=== PATIENT | male | born 1970 | race Caucasian/White ===

== ENCOUNTER 2019-01-27 19:37 | Inpatient (IN) | payer MEDICAID ==
[~2019-01-27] VITALS: Ht 170.2 cm; Wt 125.6 kg
[2019-01-27 19:40] VITALS: BP 116/75
--- NOTE | 2019-01-27 19:44 | NUR ---
PT AMBULATED TO ER BED 8
[2019-01-27] MEDS ORDERED: MORPHINE SULFATE 4 MG/ML SYR IVP ONE (19:50)
[2019-01-27] MEDS ORDERED: ONDANSETRON 4 MG/2 ML VIAL IVP ONE (19:50)
--- NOTE | 2019-01-27 19:50 | NUR ---
48/M BIB FAMILY, C/O DISTENDED ABD, SOB, GENERALIZED WEAKNESS, X3 MONTHS AND WORSENING X2 WEEKS. PT AOX4, PERRLA 3MM WITH JAUNDICE, SKIN NORMAL WARM DRY, RR EVEN AND MILDLY LABORED. LUNG SOUNDS CLEAR BL. HR EVEN, REGULAR AND TACHYCARDIC. BS HYPOACTIVE X4, ABD LARGE DISTENDED FIRM AND POSSIBLY ASCITIC, MILDLY TENDER TO TOUCH. HX HTN; DENIES KNOWLEDGE OF CARDIAC OR LIVER D/O RX SORAFENIB
[2019-01-27] MEDS: NACL 0.9% 1,000 ML IV SCH ×2 (20:03→20:04)
[2019-01-27 20:07] LABS: HEMOGLOBIN 14.6 g/dL (12.0-18.0); MEAN CORPUSCULAR HEMOGLOBIN 22 pg (27-31); MEAN CORPUSCULAR HGB CONC 32 g/dL (33-37); MEAN CORPUSCULAR VOLUME 69.1 fL (80-94); RED BLOOD CELL COUNT(AUTO) 6.66 MIL/uL (4.20-6.10); RED CELL DISTRIBUTION WIDTH 20.4 % (11.6-13.7); WHITE BLOOD COUNT (AUTO) 18.3 K/uL (4.8-10.8)
--- NOTE | 2019-01-27 20:07 | NUR ---
DR. DAVIS BEDSIDE EVALUATING PT
[2019-01-27 20:22] LABS: ALBUMIN 2.5 g/dL (3.4-5.0); ANION GAP 21.2 (8-16); CARBON DIOXIDE 23.5 mmol/L (21-32); CREATININE 2.2 mg/dL (0.7-1.3); TOTAL BILIRUBIN 5.4 mg/dL (0.0-1.0)
[2019-01-27] MEDS ORDERED: SODIUM POLYSTYRENE 15 GM/60 ML UDBTL PO ONE (20:25)
[2019-01-27 20:26] LABS: CORRECTED WHITE BLOOD COUNT 17.1 K/uL (4.5-11.0); PLATELET COUNT (AUTO) 636 K/uL (140-450)
[2019-01-27 20:27] LABS: EOSINOPHILS % (MANUAL) 1 % (0-4); LYMPHOCYTES % (MANUAL) 9 % (20-46); MONOCYTES % (MANUAL) 2 % (5-12); POTASSIUM 6.7 mmol/L (3.5-5.1)
--- NOTE | 2019-01-27 20:27 | NUR ---
PT RETURNED FROM RAD
--- NOTE | 2019-01-27 21:10 | NUR ---
PT LAYING IN BED, SPO2 95% ON 2L NC, RR 21 EVEN AND MILDLY LABORED. PT REPORTS IMPROVEMENT IN ABD PAIN AFTER MEDS, 04/08. DENIES NAUSEA. BLOOD GLUCOSE 88. DR DAVIS MADE AWARE
[2019-01-27] MEDS ORDERED: NACL 0.9% 1,000 ML IV SCH (21:16)
[2019-01-27] MEDS ORDERED: ZOLPIDEM 5 MG TAB PO PRN (21:20)
[2019-01-27] MEDS ORDERED: ACETAMINOPHEN 325 MG TAB PO PRN (21:20)
[2019-01-27] MEDS ORDERED: DOCUSATE SODIUM 100 MG GELCAP PO PRN (21:20)
[2019-01-27] MEDS ORDERED: MORPHINE SULFATE 2 MG/ML SYR IVP PRN (21:20)
[2019-01-27] MEDS ORDERED: ONDANSETRON 4 MG/2 ML VIAL IM/IVP PRN (21:20)
[2019-01-27] MEDS ORDERED: HYDROcodone/APAP 5/325 MG 1 TAB TAB PO PRN (21:20)
--- NOTE | 2019-01-27 21:40 | NUR ---
DR BRADLEY AT BEDSIDE
--- NOTE | 2019-01-27 21:50 | NUR ---
Patient will be admitted to care of DR. MOFFETT. Admited to [facility]. Will go to room 107B. Belongings list completed. Report to [facility].
[2019-01-27 21:53] VITALS: BP 123/79
--- NOTE | 2019-01-27 21:53 | NUR ---
RECEIVED BEDSIDE REPORT FROM ER NURSE. PATIENT IS AWAKE, ALERT, AND COOPERATIVE. RESPIRATION EVEN UNLABORED ON 2L NC. NO DISTRESS NOTED. SKIN IS WARM AND DRY. IV PATENT AND INTACT. CHIEF COMPLAINED ABDOMINAL PAIN, SOB, AND GEN WEAKNESS. DIAGNOSIS LIVER FAILURE; ASCITES. LUNGS SOUNDS CLEAR ON AUSCULTATIONS. BOWEL SOUNDS PRESENT IN ALL QUADRANTS. ABDOMEN ROUND AND TENDER DENIES PAIN. VITALS WERE TAKEN. MRSA SCREEN DONE. ALL SAFETY MEASURES IN PLACE. FAMILY AT BEDSIDE. ORIENT PATIENT TO ROOM, STAFF, AND CALL LIGHT. BED IS AT LOW POSITION. CALL LIGHT WITHIN REACH AND VERBALIZES ITS USE. WILL CONTINUE TO MONITOR.
[2019-01-27 21:55] LABS: PROTHROMBIN TIME 14.5 secs (10.8-13.4)
[2019-01-27 22:20] LABS: MAGNESIUM 2.5 mg/dL (1.8-2.4); PHOSPHORUS 5.2 mg/dL (2.5-4.9); THYROID STIMULATING HORMONE 3.15 uIU/mL (0.34-3.74)
--- NOTE | 2019-01-27 23:00 | NUR ---
PATIENT RESTING RESPIRATION EVEN UNLABORED ON 2L NC. NO DISTRESS NOTED. FAMILY AT BEDSIDE. WILL CONTINUE TO MONITOR.
[2019-01-28] VITALS: BP 115/63
[2019-01-28] MEDS ORDERED: FUROSEMIDE 20 MG/2 ML VIAL IVP SCH
--- NOTE | 2019-01-28 | NUR ---
ALL SCHEDULED MEDS WERE GIVEN. VITALS WERE TAKEN. NO DISTRESS NOTED. WILL CONTINUE TO MONITOR
[2019-01-28] MEDS ORDERED: SORA200T PO (00:16)
[2019-01-28] MEDS ORDERED: LOSA25TA43 PO (00:16)
[2019-01-28] MEDS ORDERED: MORPHINE SULFATE 2 MG/ML SYR IVP PRN (00:50)
[2019-01-28] MEDS ORDERED: PATIROMER CALCIUM SORBITEX 8.4 GM PKT PO PRN (01:00)
[2019-01-28] MEDS ORDERED: PATIROMER CALCIUM SORBITEX 8.4 GM PKT PO SCH ×2 (01:00→03:00)
[2019-01-28] MEDS ORDERED: SODIUM POLYSTYRENE 15 GM/60 ML UDBTL PO SCH (01:00)
[2019-01-28 01:53] LABS: ANION GAP 16.3 (8-16); CARBON DIOXIDE 24.7 mmol/L (21-32); CREATININE 2.7 mg/dL (0.7-1.3)
--- NOTE | 2019-01-28 02:00 | NUR ---
CRITICAL LAB VALUE OF GLUCOSE 47 RECEIVED. ADMINISTERED D50 PER ORDER AND GAVE ORANGE JUICE. PATIENT IS AWAKE, ALERT AND ABLE TO FOLLOW COMMANDS. WILL CONTINUE TO MONITOR
[2019-01-28] MEDS ORDERED: DEXTROSE 50% 50 ML SYR IVP PRN (02:20)
[2019-01-28] MEDS ORDERED: INSULIN LISPRO SLIDING SCALE 100 UNITS/ML VIAL SUBQ PRN (02:20)
[2019-01-28] MEDS ORDERED: LACTULOSE 20 GM/30 ML UDC PO SCH ×2 (02:20→09:00)
[2019-01-28] MEDS ORDERED: DEXTROSE 50% 50 ML SYR IVP ONE ×2 (02:33→22:17)
[2019-01-28] MEDS ORDERED: ALBUTEROL 0.083% 2.5 MG/3 ML NEBU INH SCH (03:00)
--- NOTE | 2019-01-28 03:02 | NUR ---
RECHECKED PATIENT BLOOD SUGAR. PATIENT BLOOD SUGAR 116.
[2019-01-28] MEDS: PIPER/TAZO 3.375GM/D5W PREMIX 50 ML IV SCH ×3 (06:00→17:42)
[2019-01-28] MEDS ORDERED: PIPERACILLIN/TAZOBACTAM 3.375 GM VIAL IV ONE (06:04)
--- NOTE | 2019-01-28 07:00 | NUR ---
RECEIVED BEDSIDE REPORT FROM VINYL INSTALLER NURSE. PATIENT IS AWAKE, ALERT AND ORIENTEDX4. [place] SPEAKER. NO SIGNS OF DISTRESS ON 3L OXIMIZER. AMBULATES. SKIN IS INTACT. L HAND 18G INFUSING NS AT 20. CLEAN, DRY AND INTACT. PATIENT ABLE TO MAKE NEEDS KNOWN. AT BEDSIDE. PATIENT IS CONTINENT, URINAL AT BEDSIDE. PATIENT AWARE WE NEED A STOOL SAMPLE. BED IN LOW POSITION. CALL LIGHT WITHIN REACH. WILL CONTINUE TO MONITOR THE PATIENT
[2019-01-28] MEDS: BLOOD GLUCOSE MONITORING 1 DEV DEV FS SCH ×4 (07:30→21:20)
[2019-01-28 08:00] VITALS: BP 119/72
[2019-01-28 08:06] LABS: HEMATOCRIT 43.5 % (36-52); HEMOGLOBIN 13.7 g/dL (12.0-18.0); MEAN CORPUSCULAR HEMOGLOBIN 22 pg (27-31); MEAN CORPUSCULAR HGB CONC 32 g/dL (33-37); MEAN CORPUSCULAR VOLUME 69.9 fL (80-94); RED BLOOD CELL COUNT(AUTO) 6.23 MIL/uL (4.20-6.10); RED CELL DISTRIBUTION WIDTH 20.6 % (11.6-13.7); WHITE BLOOD COUNT (AUTO) 16.9 K/uL (4.8-10.8)
[2019-01-28 08:34] LABS: ANION GAP 22.1 (8-16); CARBON DIOXIDE 22.4 mmol/L (21-32); CREATININE 3.2 mg/dL (0.7-1.3)
[2019-01-28 08:36] LABS: CHOL/HDL RATIO 13.8 (1-4.5)
[2019-01-28 08:50] LABS: POTASSIUM 6.5 mmol/L (3.5-5.1)
[2019-01-28] MEDS ORDERED: LOSARTAN 25 MG TAB PO SCH (09:00)
[2019-01-28 09:20] LABS: CORRECTED WHITE BLOOD COUNT 15.2 K/uL (4.5-11.0)
[2019-01-28 09:21] LABS: EOSINOPHILS % (MANUAL) 1 % (0-4); LYMPHOCYTES % (MANUAL) 14 % (20-46); MONOCYTES % (MANUAL) 10 % (5-12); PLATELET COUNT (AUTO) 644 K/uL (140-450)
--- NOTE | 2019-01-28 09:45 | NUR ---
DR REED AT BEDSIDE. USED Zhihu FOR TRANSLATION FOR US GUIDED PARACENTESIS, FÉLIX IS THE EXTRUSION LINE OPERATOR. EXTRUSION LINE OPERATOR NUMBER IS [id number]. US GUIDED PARACENTESIS DONE W 800ML BLOODY FLUIDS OUT.
[2019-01-28] MEDS: LACTOBACILLUS RHAMNOSUS GG 1 EACH CAP PO SCH (10:36)
--- NOTE | 2019-01-28 10:37 | NUR ---
ADMINISTERED MEDS. EDUCATED ON SIDE EFFECTS. PATIENT TOLERATED WELL. WILL CONTINUE TO MONITOR THE PATIENT. FAMILY AT BEDSIDE.
[2019-01-28 11:23] VITALS: BP 119/73
[2019-01-28] MEDS: LORazepam 2 MG/ML VIAL IM/IVP PRN (11:24)
--- NOTE | 2019-01-28 11:29 | NUR ---
PATIENTS IV HURTS. REMOVED, TIP INTACT. NEW IV ON L HAND 22G INFUSING NS AT 100. PATIENT FEELS REALLY ANXIOUS. ADMINISTERED PRN ANXIETY MED. PATIENT TOLERATED WELL. EDUCATED ON SIDE EFFECTS. WILL CONTINUE TO MONITOR. FAMILY AT BEDSIDE
--- NOTE | 2019-01-28 11:57 | NUR ---
PATIENT IS SLEEPING. NO SIGNS OF DISTRESS. FAMILY AT BEDSIDE. WILL CONTINUE TO MONITOR THE PATIENT
[2019-01-28] MEDS: LACTULOSE 20 GM/30 ML UDC PO SCH ×2 (12:25→17:42)
--- NOTE | 2019-01-28 12:29 | NUR ---
ADMINISTERED MEDS. EDUCATED ON SIDE EFFECTS. WILL CONTINUE TO MONITOR THE PATIENT.
--- NOTE | 2019-01-28 12:35 | NUR ---
PER RT THEE, PATIENT NOW ON 4L NC. SATING AT 92-93%
[2019-01-28 13:20] LABS: GLUCOSE,BODY FLUID 103 mg/dL
[2019-01-28 13:26] LABS: LDH,BODY FLUID 236 U/L
[2019-01-28 13:28] LABS: ALBUMIN,BODY FLUID 1.9 g/dL
--- NOTE | 2019-01-28 13:30 | NUR ---
GOT URINE SAMPLE. SENT TO LAB.
[2019-01-28 13:49] LABS: TOTAL VOLUME,BODY FLUID 350 mL
[2019-01-28 13:50] LABS: APPEARANCE,UNSPUN,BODY FLUID BLOODY (CLEAR); SPECIMENTYPE,BODY FLUID PERITONEAL FLUID
[2019-01-28 13:51] LABS: APPEARANCE,SPUN,BODY FLUID CLEAR (CLEAR); COLOR,BODY FLUID YELLOW (LT YELLOW)
[2019-01-28 13:52] LABS: WBC, BODY FLUID 10 /cu. mm.
[2019-01-28 13:54] LABS: POLYNUCLEAR, BODY FLUID 5 %; RBC, BODY FLUID 52200 /cu. mm.
--- NOTE | 2019-01-28 15:00 | NUR ---
PATIENT RESTING IN BED. NO SIGNS OF DISTRESS ON 4L NC. WILL CONTINUE TO MONITOR THE PATIENT
[2019-01-28 15:01] LABS: APPEARANCE,URINE HAZY (CLEAR); BILIRUBIN,URINE 3+ (NEGATIVE); BLOOD, URINE 1+ (NEGATIVE); COLOR,URINE BROWN (YELLOW); LEUKOCYTE ESTERASE ,URINE TRACE (NEGATIVE); NITRITE, URINE NEGATIVE (NEGATIVE); UGLUCOSE NEGATIVE (NEGATIVE)
[2019-01-28 15:10] LABS: BARBITURATE, URINE NEG. ng/ml (NEG <=200); BENZODIAZEPINE, URINE NEG. ng/mL (NEG <=200); CANNABINOID, URINE NEG. ng/mL (NEG <=50); COCAINE, URINE NEG. ng/mL (NEG <=300); OPIATE, URINE POS. ng/mL (NEG <=2000); PHENCYCLIDINE SCREEN,URINE NEG. ng/mL (NEG <=25)
[2019-01-28 15:25] LABS: RBC,URINE 11-20 (MOD) /HPF (0-5); URINE AMORPHOUS URATE 1+ /HPF (None Seen)
[2019-01-28 15:47] LABS: ANION GAP 16.3 (8-16); CREATININE 3.3 mg/dL (0.7-1.3)
[2019-01-28 15:56] LABS: POTASSIUM 6.3 mmol/L (3.5-5.1)
[2019-01-28 16:00] VITALS: BP 110/61
[2019-01-28] MEDS: DEXT 5% / NACL 0.9% 500 ML IV SCH ×2 (16:34→20:15)
--- NOTE | 2019-01-28 16:39 | NUR ---
PATIENT GETTING BED BATH FROM . ADMINISTERED D5NS AT 120. CLEAN, DRY AND INTACT. WILL CONTINUE TO MONITOR THE PATIENT
--- NOTE | 2019-01-28 17:42 | NUR ---
ADMINISTERED MEDS. PATIENT TOLERATED WELL. EDUCATED ON SIDE EFFECTS. WILL CONTINUE TO MONITOR THE PATIENT
[2019-01-28] MEDS: ALBUMIN HUMAN 25% 50 ML IV ONE ×2 (18:20→19:03)
[2019-01-28] MEDS: MIDODRINE 5 MG TAB PO SCH (19:03)
[2019-01-28 19:05] LABS: ANION GAP 17.1 (8-16); CARBON DIOXIDE 24.1 mmol/L (21-32); CREATININE 3.2 mg/dL (0.7-1.3)
[2019-01-28] MEDS: ALBUMIN HUMAN 25% 100 ML IV ONE ×2 (19:05→19:10)
--- NOTE | 2019-01-28 19:05 | NUR ---
GAVE BEDSIDE REPORT TO WINDOW TREATMENT INSTALLER NURSE. PATIENT ENDORSED IN STABLE CONDITION. CRITICAL VALUES ENDORSED TO NURSE. NURSE IS AWARE THAT DR SERRANO WANTS TO KNOW THE RESULTS OF BNP VALUES
[2019-01-28 19:09] LABS: POTASSIUM 6.2 mmol/L (3.5-5.1)
--- NOTE | 2019-01-28 19:10 | NUR ---
RECEIVED BEDSIDE REPORT FROM DAY SHIFT NURSE. PATIENT IS AWAKE, ALERT, AND COOPERATIVE. FAMILY AT BEDSIDE. SKIN IS WARM AND DRY. IV PATENT AND INTACT. RESPIRATION EVEN UNLABORED ON 4L NC. NO DISTRESS NOTED. PLAN OF CARE WAS DISCUSSED AND REVIEWED WITH THE PATIENT AND FAMILY. ALL SAFETY MEASURES IN PLACE. BED IS AT LOW POSITION. CALL LIGHT WITHIN REACH. WILL CONTINUE TO MONITOR.
[2019-01-28 20:00] VITALS: BP 107/68
[2019-01-28] MEDS ORDERED: INSULIN REGULAR, HUMAN 100 UNIT/ML VIAL IVP SCH (21:10)
[2019-01-28] MEDS ORDERED: SODIUM POLYSTYRENE 15 GM/60 ML UDBTL PR SCH (21:10)
[2019-01-28] MEDS ORDERED: DEXTROSE 50% 50 ML SYR IVP SCH (21:10)
[2019-01-28] MEDS ORDERED: CALCIUM GLUCONATE 10% 1,000 MG in NACL 0.9% 50 ML IV ONE (21:10)
[2019-01-28] MEDS ORDERED: SODIUM BICARBONATE 8.4% PFS 50 MEQ/50 ML SYR IVP SCH (21:10)
[2019-01-28] MEDS ORDERED: diphenhydrAMINE 50 MG/ML VIAL IVP SCH (21:25)
[2019-01-28] MEDS ORDERED: CALCIUM GLUCONATE 10% 1000 MG/10 ML VIAL ONE (22:17)
--- NOTE | 2019-01-28 22:20 | NUR ---
ADMINISTERED [address] SERRANO ORDER. WILL CONTINUE TO MONITOR.
[2019-01-28] MEDS ORDERED: SODIUM POLYSTYRENE 15 GM/60 ML UDBTL ONE (22:22)
--- NOTE | 2019-01-28 23:00 | NUR ---
ADMINISTERED IV PUSH REGULAR INSULIN 5UNITS PER DR. SERRANO ORDER. WILL CONTINUE TO MONITOR.
[2019-01-29] VITALS: BP 135/71
--- NOTE | 2019-01-29 | NUR ---
VITALS WERE TAKEN. PATIENT IS IN STABLE CONDITION. IS AT BEDSIDE. NO DISTRESS NOTED. WILL CONTINUE TO MONITOR.
[2019-01-29] MEDS: PIPER/TAZO 3.375GM/D5W PREMIX 50 ML IV SCH ×2 (00:05→05:12)
--- NOTE | 2019-01-29 01:20 | NUR ---
CHECKED PATIENT BLOOD GLUCOSE. PATIENT BLOOD GLUCOSE 121mg/dL. WILL CONTINUE TO MONITOR
[2019-01-29] MEDS: DEXT 5% / NACL 0.9% 500 ML IV SCH ×2 (01:23→04:35)
--- NOTE | 2019-01-29 02:00 | NUR ---
CHECKED PATIENT. PATIENT SLEEPING RESPIRATION EVEN UNLABORED ON 4L NC. NO DISTRESS NOTED. AT BEDSIDE. WILL CONTINUE TO MONITOR.
--- NOTE | 2019-01-29 04:00 | NUR ---
HELPED PATIENT AMBULATE TO THE BATHROOM. NO DISTRESS NOTED. WILL CONTINUE TO MONITOR.
--- NOTE | 2019-01-29 05:00 | NUR ---
PATIENT ACCIDENTALLY PULLED HIS IV OUT. NO ACTIVE BLEEDING SEEN. CANNULA INTACT. NEW IV INSERTED TO THE RIGHT HAND 22G.
[2019-01-29] MEDS: MIDODRINE 5 MG TAB PO SCH ×3 (06:12→18:29)
--- NOTE | 2019-01-29 06:30 | NUR ---
PATIENT HAS BEEN SCREENED AND CATEGORIZED HIGH NUTRITION RISK. PATIENT WILL BE SEEN WITHIN 1-2 DAYS OF ADMISSION. 01/29/19-01/30/19 GISELLE RIVERA MS, RDN
[2019-01-29] MEDS: BLOOD GLUCOSE MONITORING 1 DEV DEV FS SCH ×4 (06:43→20:33)
--- NOTE | 2019-01-29 07:25 | NUR ---
ENDORSED PATIENT TO DAY SHIFT NURSE FOR CONTINUITY OF CARE. PATIENT IS IN STABLE CONDITION.
--- NOTE | 2019-01-29 07:26 | NUR ---
RECEIVED BEDSIDE REPORT FROM RATTAN WORKER NURSE. PATIENT IS AWAKE, ALERT AND ORIENTEDX4. NO SIGNS OF DISTRESS ON 2L NC. SKIN HAS SCABS ON UPPER EXTREMITIES, CHEST AND BACK. PATIENTS GIRLFRIEND STATES HE GETS ANXIOUS AND SCRATCHES HIS BODY. AMBULATE W ASSIST, PATIENT HAS WEAKNESS. FALL RISK PROTOCOL IN PLACE. R HAND 22G INFUSING D5NS AT 120. CLEAN, DRY AND INTACT. PATIENT IS CONTINENT BUT DOES NOT MAKE IT TO THE RESTROOM SO BEDSIDE COMMODE AVAILABLE. BED IN LOW POSITION. CALL LIGHT WITHIN REACH, WILL CONTINUE TO MONITOR THE PATIENT
[2019-01-29 07:54] LABS: HEMATOCRIT 41.6 % (36-52); MEAN CORPUSCULAR HEMOGLOBIN 22 pg (27-31); MEAN CORPUSCULAR HGB CONC 31 g/dL (33-37); MEAN CORPUSCULAR VOLUME 69.9 fL (80-94); RED BLOOD CELL COUNT(AUTO) 5.95 MIL/uL (4.20-6.10); WHITE BLOOD COUNT (AUTO) 15.5 K/uL (4.8-10.8)
[2019-01-29 08:00] VITALS: BP 120/85
[2019-01-29 08:05] LABS: ANION GAP 19.3 (8-16); CARBON DIOXIDE 23.8 mmol/L (21-32); POTASSIUM 5.1 mmol/L (3.5-5.1)
[2019-01-29 08:09] LABS: MAGNESIUM 2.9 mg/dL (1.8-2.4)
[2019-01-29] MEDS: LACTULOSE 20 GM/30 ML UDC PO SCH ×3 (09:00→16:41)
--- NOTE | 2019-01-29 09:00 | NUR ---
PATIENT SITTING IN BED. NO SIGNS OF DISTRESS. BED IN LOW POSITION. FAMILY AT BEDSIDE. WILL CONTINUE TO MONITOR THE PATIENT
[2019-01-29] MEDS ORDERED: ALBUMIN HUMAN 25% 50 ML IV ONE (09:43)
[2019-01-29] MEDS: OCTREOTIDE ACETATE 100 MCG/ML VIAL SUBQ SCH ×3 (09:45→16:42)
[2019-01-29] MEDS: LACTOBACILLUS RHAMNOSUS GG 1 EACH CAP PO SCH (09:45)
[2019-01-29 09:52] LABS: CORRECTED WHITE BLOOD COUNT 14.6 K/uL (4.5-11.0); EOSINOPHILS % (MANUAL) 2 % (0-4); LYMPHOCYTES % (MANUAL) 19 % (20-46); MONOCYTES % (MANUAL) 11 % (5-12)
[2019-01-29] MEDS: DEXT 5% /NACL 0.9% 1,000 ML IV SCH ×2 (09:53→18:30)
[2019-01-29 09:56] LABS: PLATELET COUNT (AUTO) 593 K/uL (140-450)
--- NOTE | 2019-01-29 10:06 | NUR ---
ADMINISTERED BEBE MEDS. PATIENT REFUSED LACTULOSE. WILL TELL DR CONLEY. EDUCATED ON RISKS OF REFUSAL. 100ML OF ALBUMIN WAS GIVEN YESTERDAY. TOLD DR CONLEY THAT 150ML WAS SUPPOSE TO BE ORDERED, 3 50ML BOTTLES, BUT YESTERDAY I GAVE 100ML BOTTLE. HE SAID ITS OK TO JUST GIVE THE REMAINING 50ML. EDUCATED PATIENT ON MEDS. PATIENT TOLERATING WELL. WILL CONTINUE TO MONITOR THE PATIENT
--- NOTE | 2019-01-29 11:00 | NUR ---
PATIENTS SISTER IN LAW, KURTIS, ASKED TO SPEAK TO ME OUTSIDE OF THE ROOM. 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 KURTIS STATES THAT THE FAMILY DOES NOT TRUST HIS GIRLFRIEND. THAT THE GIRLFRIEND WANTS HIM TO SIGN CERTAIN PAPERS, PATIENTS GIRLFRIEND IS FROM [place]. AND THE PATIENT USUALLY LISTENS TO WHAT THE GIRLFRIEND WANTS. THEY ARE CONCERNED THAT THE PATIENTS GIRLFRIEND MAY BE DELAYING THE HEALING PROCESS, THEY THINK SHE MAYBE GIVING HIM MEDS HE SHOULD NOT BE TAKING. DR CONLEY SPOKE TO THE KURTIS, THE SISTER IN LAW, AND SAID THE PATIENT IS ABLE TO MAKE HIS OWN DECISIONS AND THE CONDITION THE PATIENT IS IN. WE INFORMED KURTIS THAT THE FAMILY AND PATIENT SHOULD SPEAK TO A TEXTILE DYER TOMORROW IN REGARDS TO THEIR CONCERNS AND POSSIBLE DISCHARGE TO HOSPICE. KURTIS SAID OK. NO MORE CONCERNS AT THIS TIME. PLEASE DO NOT ALLOW GIRLFRIEND TO SLEEPOVER NIGHT, PER HOSPITAL POLICY.
--- NOTE | 2019-01-29 11:50 | NUR ---
KURTIS, SISTER IN LAW, WAS CONCERNED THAT THE PATIENTS GIRLFRIEND WILL TAKE HIS IDENTIFICATION CARD AND USE IT FOR PAPERWORK WITHOUT THE PATIENTS CONSENT. SEWING MACHINE ADJUSTER, JENN, IS AWARE THAT THEY WANT US TO KEEP THE ID BUT SINCE THE PATIENT IS ALERT AND ORIENTED WE ARE NOT ALLOWED TO KEEP IT UNLESS THE PATIENT ACCEPTS WE KEEP IT. PATIENT AGREED TO ALLOW THE BROTHER, ALF TO KEEP THE ID. ID IS WITH BROTHER AND BROTHER SIGNED IT IN THE CHART ON THE PERSONAL BELONGINGS LIST.
--- NOTE | 2019-01-29 12:00 | NUR ---
PATIENT WANTED TO LEAVE AMA WITH GIRLFRIEND. DR CONLEY SPOKE TO PATIENT AND FAMILY HE SAID PATIENT SHOULD NOT LEAVE DUE TO HEALTH CONDITIONS AND THE RISKS. HE UPDATED THE FAMILY, GIRLFRIEND AND PATIENT ON THE CONDITION AND POSSIBLE DISCHARGE TO HOSPICE. PATIENT IS AGREEABLE TO STAY ONE MORE DAY TO WAIT FOR DENTAL MANAGER TO SPEAK TO HIM ABOUT POSSIBLE DISCHARGE TO HOSPICE CARE
[2019-01-29] MEDS: PIPER/TAZO 2.25GM/D5W PREMIX 50 ML IV SCH ×2 (12:56→18:29)
[2019-01-29] MEDS: LORazepam 2 MG/ML VIAL IM/IVP PRN (12:57)
--- NOTE | 2019-01-29 13:11 | NUR ---
ADMINISTERED MEDS. EDUCATED PATIENT ON SIDE EFFECTS. PATIENT TOLERATED WELL. WILL CONTINUE TO MONITOR THE PATIENT. FAMILY AT BEDSIDE
--- NOTE | 2019-01-29 14:40 | NUR ---
PATIENT IS SLEEPING. NO SIGNS OF DISTRESS. WILL CONTINUE TO MONITOR THE PATIENT
[2019-01-29 16:00] VITALS: BP 112/66
--- NOTE | 2019-01-29 16:30 | NUR ---
PATIENT AMBULATED TO THE RESTROOM W GIRLFRIEND AND BACK IN BED. NO SIGNS OF DISTRESS. WILL CONTINUE TO MONITOR
--- NOTE | 2019-01-29 17:02 | NUR ---
ADMINISTERED MEDS. EDUCATED ON SIDE EFFECTS. PATIENT TOLERATED WELL. BED IN LOW POSITION. CALL LIGHT WITHIN REACH. WILL CONTINUE TO MONITOR
--- NOTE | 2019-01-29 19:11 | NUR ---
GAVE BEDSIDE REPORT TO POWER SAW OPERATOR NURSE. PATIENT ENDORSED IN STABLE CONDITION.
--- NOTE | 2019-01-29 19:12 | NUR ---
Received endorsement from AM shift RN; patient Maribel/Ox4, able to make needs known, Luxembourgish speaking only; friend at bedside, introduced self, updated board. No SOB or distress noted, on O2 2LPM via N/C. Skin noted with multiple scabs. IV site on right hand, 22 gauge, intact, running IVF at 120mL/hr. Bed in the lowest position, call light within reach. Initial assessment done. Will continue to monitor. Addendum: 01/30/19 at 0035 by Vito Raines RN Addendum - Patient is A/Ox1, confused.
--- NOTE | 2019-01-29 21:30 | NUR ---
Checks made; no distress noted.
--- NOTE | 2019-01-29 22:00 | NUR ---
Dr. Henao at bedside; patient discussed wanting to leave AMA. Patient advised by Dr. Henao about risks of leaving AMA. Brother Suhail was called and made aware and was agreeable for wanting patient to leave AMA, but at 0800 01/30/2019.
--- NOTE | 2019-01-29 23:45 | NUR ---
Vitals taken, patient asleep, visible chest rise and fall noted.
[2019-01-30] VITALS: BP 123/81
[2019-01-30] MEDS: PIPER/TAZO 2.25GM/D5W PREMIX 50 ML IV SCH ×2 (00:07→05:12)
[2019-01-30] MEDS: DEXT 5% /NACL 0.9% 1,000 ML IV SCH (00:59)
--- NOTE | 2019-01-30 01:55 | NUR ---
Checks made; patient sitting on the side of the bed; no distress noted.
--- NOTE | 2019-01-30 03:30 | NUR ---
Frequent checks made; no SOB or distress noted.
--- NOTE | 2019-01-30 05:10 | NUR ---
Checked on patient to give IV antibiotic; found IV in a kidney basin; patient stated IV site was accidentally removed while turning to the side. Asked if he would like to receive antibiotic and new IV site must be placed; patient refused. Dr. Henao made aware.
[2019-01-30] MEDS: MIDODRINE 5 MG TAB PO SCH (06:11)
[2019-01-30] MEDS: BLOOD GLUCOSE MONITORING 1 DEV DEV FS SCH (06:15)
--- NOTE | 2019-01-30 07:28 | NUR ---
Endorsed patient to AM shift RN for continuity of care; patient in stable condition.
--- NOTE | 2019-01-30 07:29 | NUR ---
RECEIVED BEDSIDE REPORT FROM NIGHT NURSE. PT IS RESTING IN BED WITH VISITOR AT BEDSIDE. PT IS MALAY SPEAKING AND RESPONDS TO NAME APPEARING ALERT AND ORIENTED. PT IS WEARING CLOTHING AND NOT GOWN AND VISITOR AT BEDSIDE IS REQUESTING THEY PLAN TO LEAVE AMA AT 0800 PENDING THE PATIENTS BROTHER TO COME PICK HIM UP. PT BREATHING IS SYMMETRICAL AND UNLABORED WITH OBVIOUS LARGE STOMACH SWELLING. PT HAS NO IV SITE STATING THEY HAVE REFUSED IT SINCE THEY ARE PLANNING ON LEAVING. ALL SAFETY MEASURES ARE IN PLACE WITH CALL LIGHT IN REACH. PT DENIES ANY PAIN AND HAS NO REQUESTS.
[2019-01-30 08:00] VITALS: BP 140/90
--- NOTE | 2019-01-30 09:00 | NUR ---
PATIENT'S BROTHER ALF AT [phone] WAS SPOKEN TO ON THE PHONE AT 0800 AND STATED HE WOULD COME SOLDERER FURNACE HIS BROTHER. ALF, PT, AND PT VISITOR LEFT WITH ALL BELONGINGS AFTER BROTHER SIGNED AMA FORM. PT HAS PRESCRIPTIONS WITH HIM, REVIEWED THESE WITH BROTHER, ALF, WELL.
[2019-01-31 06:13] LABS: HEPATITIS A ANTIBODY IGM Negative (Negative); HEPATITIS B CORE AB TOTAL Negative (Negative); HEPATITIS B SURFACE ANTIBODY Non Reactive (.); HEPATITIS B SURFACE ANTIGEN Negative (Negative)
[2019-02-01 20:10] LABS: AFP (TUMOR MARKER) Diluted Result ng/mL (0.0-8.3)
== END 2019-01-30 09:00 | disposition left against medical advice (07) | DRG 720 ==
LOC: MED 19:37 → MTU 21:16
PROVIDERS: ADMIT General Practice; ATTEND General Practice
PROC: 0W9G3ZZ Drainage of Peritoneal Cavity, Percutaneous Approach (ICD-10-PCS; principal; 2019-01-28)
DX: A41.9 Sepsis, unspecified organism (principal); J96.00 Acute respiratory failure, unspecified whether with hypoxia or hypercapnia; N17.0 Acute kidney failure with tubular necrosis; E43 Unspecified severe protein-calorie malnutrition; C22.0 Liver cell carcinoma; E72.20 Disorder of urea cycle metabolism, unspecified; K72.90 Hepatic failure, unspecified without coma; K70.31 Alcoholic cirrhosis of liver with ascites; D72.829 Elevated white blood cell count, unspecified; E66.01 Morbid (severe) obesity due to excess calories; E83.41 Hypermagnesemia; E83.39 Other disorders of phosphorus metabolism; E83.52 Hypercalcemia; E87.1 Hypo-osmolality and hyponatremia; E87.5 Hyperkalemia; Z53.21 Procedure and treatment not carried out due to patient leaving prior to being seen by health care provider; F10.20 Alcohol dependence, uncomplicated; I10 Essential (primary) hypertension; Y90.9 Presence of alcohol in blood, level not specified; N39.0 Urinary tract infection, site not specified; Z68.41 Body mass index [BMI] 40.0-44.9, adult; Z83.3 Family history of diabetes mellitus; Z82.49 Family history of ischemic heart disease and other diseases of the circulatory system
CPT/HCPCS: 36415; 49083; 71045; 74018; 76705; 76770; 80048; 80053; 80305; 81001; 82105; 82140; 82272; 82378; 82945; 82948; 83036; 83615; 83690; 83735; 84100; 84134; 84155; 84157; 84443; 85025; 85610; 85730; 86704; 86706; 86708; 86709; 86803; 87040; 87070; 87075; 87081; 87086; 87205; 87340; 88305; 89051; 93005; 96361; 96374; 96375; 99285; J0610; J1200; J1940; J2001; J2060; J2270; J2354; J2405; J2543; J7030; J7042; J7060; J7613; P9046; Q0092